=== PATIENT | female | born 1975 | race African-American/Black ===

== ENCOUNTER 2019-02-08 01:16 | Inpatient (IN) ==
[2019-02-08] MEDS ORDERED: KETOROLAC 30 MG/1 ML VIAL IV STA (01:36)
[2019-02-08] MEDS ORDERED: MORPHINE 4 MG/1 ML VIAL IV STA (01:36)
[2019-02-08] MEDS ORDERED: ONDANSETRON 4 MG/2 ML VIAL IV STA (01:36)
[2019-02-08] MEDS ORDERED: SODIUM CHLORIDE 0.9% 1,000 ML IV STA ×2 (01:36→02:48)
[2019-02-08 02:20] LABS: Basophils # 0.1 10*3/uL (0.0-0.2); Basophils % 0.3 % (0.0-0.8); Eosinophils % 0.1 % (0.00-10.9); Hematocrit 34.7 VOL% (35.7-47.0); Hemoglobin 10.9 GM/DL (12.0-16.0); Immature Granulocytes % 0.6 %; Lymphocytes # 0.6 10*3/uL (1.4-4.0); Mean Corpuscular HGB Conc 31.4 GM/DL (32-36); Mean Corpuscular Volume 73.4 FL (87-102); Mean Platelet Volume 11.3 FL (9.6-12.0); Monocytes % 2.2 % (1.7-12.7); Neutrophils % 92.8 % (38.7-73.9); Platelet Count 281 T/CUMM (130-400); Red Blood Count 4.73 MC/CUMM (3.8-5.5); Red Cell Distribution Width 15.9 % (9.3-17.3); White Blood Count 15.7 T/CUMM (4-12)
[2019-02-08 02:39] LABS: Albumin 3.2 G/DL (3.4-5.0); Bilirubin,Total 0.9 MG/DL (0.2-1.0); Calcium 8.7 MG/DL (8.5-10.1); Osmolality,Calculated 283.1 MOS/KG (273-304); Total Protein 7.1 G/DL (6.4-8.3)
[2019-02-08 02:46] LABS: Apearance,Urine Slightly Hazy (Clear); Bacteria,Urine Few /HPF (Few); Bilirubin,Urine Negative (Negative); Blood, Urine Moderate mg/dL (Negative); Glucose,Urine (UA) Negative (Negative); Ketones,Urine Negative (Negative); Mucus,Urine Occasional /LPF (Occasional); Nitrite,Urine Negative (Negative); Protein,Urine Negative; RBC,Urine 4 /HPF (0-4); Squamous Epithelial Cell,Urine Occasional /HPF (0-10); Urine Color Yellow (Yellow); Urine Specific Gravity 1.012 (1.001-1.035); WBC,Urine 118 /HPF (0-6)
[2019-02-08] MEDS ORDERED: cefTRIAXone 1,000 MG in SODIUM CHLORIDE 0.9% 100 ML IV STA (02:48)
[2019-02-08 03:26] LABS: Eosinophils 1 % (0-10); Lymphocytes 3 % (20-55); Polychromasia Few; Segmented Neutrophils 94 % (50-85); Total Cells Counted 100
[2019-02-08 03:27] LABS: Hypochromasia Slight; Platelet Estimate Normal
[2019-02-08] MEDS ORDERED: ONDANSETRON 4 MG/2 ML VIAL IV PRN (03:52)
[2019-02-08] MEDS: SODIUM CHLORIDE 0.9% 1,000 ML IV SCH ×3 (05:24→19:03)
[2019-02-08] MEDS ORDERED: MEROPENEM 1,000 MG in SODIUM CHLORIDE 0.9% 100 ML IV SCH (06:00)
[2019-02-08] MEDS ORDERED: GENTAMICIN 80 MG/2 ML VIAL ONE (08:15)
[2019-02-08] MEDS ORDERED: LIDOCAINE 2% 5 ML VIAL ONE (08:59)
[2019-02-08] MEDS ORDERED: MIDAZOLAM 2 MG/2 ML VIAL ONE (08:59)
[2019-02-08] MEDS ORDERED: fentaNYL 100 MCG/2 ML VIAL ONE (08:59)
[2019-02-08] MEDS ORDERED: ROCURONIUM 100 MG/10 ML VIAL IV ONE (09:00)
[2019-02-08] MEDS ORDERED: SUCCINYLCHOLINE 200 MG/10 ML VIAL ONE (09:00)
[2019-02-08] MEDS ORDERED: ETOMIDATE 40 MG/20 ML VIAL IV ONE (09:00)
[2019-02-08] MEDS ORDERED: ONDANSETRON 4 MG/2 ML VIAL ONE (09:00)
[2019-02-08] MEDS ORDERED: propofoL 200 MG/20 ML VIAL IV ONE (09:00)
[2019-02-08] MEDS ORDERED: SEVOFLURANE 1 UNIT/15 MINUTE INH ONE (09:00)
[2019-02-08] MEDS ORDERED: PHENYLEPHRINE 1 MG/10 ML SYRINGE IV ONE (09:01)
[2019-02-08] MEDS: PANTOPRAZOLE 40 MG TABLET PO SCH (10:27)
[2019-02-08] MEDS: MORPHINE 4 MG/1 ML VIAL IV PRN ×2 (11:02→21:42)
[2019-02-08] MEDS: MEROPENEM 500 MG in SODIUM CHLORIDE 0.9% 100 ML IV SCH ×3 (11:03→23:56)
[2019-02-08] MEDS: ACETAMINOPHEN 325 MG TABLET PO PRN ×2 (15:49→23:55)
[2019-02-09] MEDS: SODIUM CHLORIDE 0.9% 1,000 ML IV SCH ×3 (03:43→21:09)
[2019-02-09 04:36] LABS: Basophils % 0.2 % (0.0-0.8); Eosinophils # 0.1 10*3/uL (0.0-0.87); Eosinophils % 0.4 % (0.00-10.9); Hematocrit 30.8 VOL% (35.7-47.0); Hemoglobin 9.7 GM/DL (12.0-16.0); Immature Granulocytes % 0.9 %; Immature Granulocytes Absolute 0.13 #; Lymphocytes # 0.8 10*3/uL (1.4-4.0); Lymphocytes % 5.3 % (21.3-54.2); Mean Corpuscular HGB Conc 31.5 GM/DL (32-36); Mean Corpuscular Volume 73.9 FL (87-102); Mean Platelet Volume 11.9 FL (9.6-12.0); Monocytes % 4.9 % (1.7-12.7); Neutrophils % 88.3 % (38.7-73.9); Platelet Count 236 T/CUMM (130-400); Red Blood Count 4.17 MC/CUMM (3.8-5.5); Red Cell Distribution Width 16.1 % (9.3-17.3); White Blood Count 14.1 T/CUMM (4-12)
[2019-02-09 04:54] LABS: Albumin 2.4 G/DL (3.4-5.0); Bilirubin,Total 3.2 MG/DL (0.2-1.0); Calcium 8.1 MG/DL (8.5-10.1); Osmolality,Calculated 288.6 MOS/KG (273-304); Total Protein 6.4 G/DL (6.4-8.3)
[2019-02-09] MEDS: MEROPENEM 500 MG in SODIUM CHLORIDE 0.9% 100 ML IV SCH ×3 (05:35→18:50)
[2019-02-09] MEDS ORDERED: POTASSIUM CHLORIDE 20 MEQ TABLET PO ONE (08:06)
[2019-02-09] MEDS ORDERED: POTASSIUM CHLORIDE 20 MEQ TABLET PO PRN (08:40)
[2019-02-09] MEDS: PANTOPRAZOLE 40 MG TABLET PO SCH (09:41)
[2019-02-09] MEDS ORDERED: IRON SUCROSE 300 MG in SODIUM CHLORIDE 0.9% 100 ML IV ONE (11:50)
[2019-02-09] MEDS: ACETAMINOPHEN 325 MG TABLET PO PRN (13:38)
[2019-02-09] MEDS: PROCHLORPERAZINE 5 MG TABLET PO SCH ×2 (15:47→21:04)
[2019-02-09] MEDS: FOLIC ACID 1 MG TABLET PO SCH (21:04)
[2019-02-09] MEDS: BISACODYL 5 MG TABLET PO PRN (21:05)
[2019-02-10] MEDS: MEROPENEM 500 MG in SODIUM CHLORIDE 0.9% 100 ML IV SCH ×2 (00:27→06:00)
[2019-02-10 05:12] LABS: Basophils % 0.4 % (0.0-0.8); Eosinophils # 0.1 10*3/uL (0.0-0.87); Eosinophils % 1.1 % (0.00-10.9); Hemoglobin 9.5 GM/DL (12.0-16.0); Immature Granulocytes % 0.4 %; Immature Granulocytes Absolute 0.04 #; Lymphocytes # 1.2 10*3/uL (1.4-4.0); Lymphocytes % 12.7 % (21.3-54.2); Mean Corpuscular HGB Conc 30.6 GM/DL (32-36); Mean Platelet Volume 11.8 FL (9.6-12.0); Monocytes % 4.1 % (1.7-12.7); Neutrophils % 81.3 % (38.7-73.9); Platelet Count 220 T/CUMM (130-400); Red Blood Count 4.19 MC/CUMM (3.8-5.5); Red Cell Distribution Width 16.2 % (9.3-17.3); White Blood Count 9.5 T/CUMM (4-12)
[2019-02-10 05:44] LABS: Calcium 8.6 MG/DL (8.5-10.1); Osmolality,Calculated 290.4 MOS/KG (273-304)
[2019-02-10] MEDS: SODIUM CHLORIDE 0.9% 1,000 ML IV SCH (06:00)
[2019-02-10] MEDS: MULTIVITAMIN (BEROCCA) TABLET PO SCH (10:02)
[2019-02-10] MEDS: PANTOPRAZOLE 40 MG TABLET PO SCH (10:02)
[2019-02-10] MEDS: PROCHLORPERAZINE 5 MG TABLET PO SCH ×3 (10:02→21:10)
[2019-02-10] MEDS: PHENAZOPYRIDINE 95 MG TABLET PO SCH ×3 (10:02→17:50)
[2019-02-10] MEDS: cefTRIAXone 2,000 MG in SYRINGE 1 EACH IV SCH (11:35)
[2019-02-10] MEDS: FOLIC ACID 1 MG TABLET PO SCH (21:10)
[2019-02-10] MEDS: BISACODYL 5 MG TABLET PO PRN (21:10)
[2019-02-11 05:19] LABS: Calcium 8.6 MG/DL (8.5-10.1); Osmolality,Calculated 283.8 MOS/KG (273-304)
[2019-02-11] MEDS: PANTOPRAZOLE 40 MG TABLET PO SCH (08:52)
[2019-02-11] MEDS: PROCHLORPERAZINE 5 MG TABLET PO SCH (08:52)
[2019-02-11] MEDS: PHENAZOPYRIDINE 95 MG TABLET PO SCH ×2 (08:52→11:33)
[2019-02-11] MEDS: MULTIVITAMIN (BEROCCA) TABLET PO SCH (08:52)
[2019-02-11] MEDS ORDERED: FERROUS SULFATE 325 MG TABLET PO SCH (09:00)
[2019-02-11] MEDS: cefTRIAXone 2,000 MG in SYRINGE 1 EACH IV SCH (11:33)
[2019-02-11 13:35] VITALS: BP 158/92
== END 2019-02-11 14:40 | disposition home or self-care (01) ==
LOC: N.ED 01:16 → SUATTDRO 03:52 → N.EDINP 03:52 → N.5E 04:17
PROVIDERS: ADMIT Hospitalist; ATTEND Internal Medicine